=== PATIENT | female | born 1985 | race Caucasian/White ===

== ENCOUNTER 2017-09-02 22:37 | Emergency (ER) | payer BC ==
[~2017-09-02] VITALS: Ht 157.5 cm; Wt 60.0 kg
[2017-09-03 04:16] VITALS: BP 114/71
== END 2017-09-03 04:17 | disposition home or self-care (01) ==
LOC: EDBD 22:37 → ED 09-03 04:11
DX: F10.129 Alcohol abuse with intoxication, unspecified (principal)
CPT/HCPCS: 99283